=== PATIENT | female | born 1935 | race Caucasian/White ===

== ENCOUNTER → 2016-11-26 | Outpatient (CLI) | payer MEDICARE ==
[~2016-11-26] MED LIST: ATACAND16 MG PO; CEFTIN PO; ECOTRIN325 MG PO; LEVOTHROID (S100 MCG PO; LOPRESSOR25 MG PO; NITROSTAT0.4 MG SL; PEPCID40 MG PO; PRAVACHOL80 MG PO
== END | disposition disaster alternative care site (69) ==
LOC: GLAB 11-25 10:00 → GRAD 11:56 → GLAB 13:00
PROVIDERS: Otolaryngology
DX: R22.1 Localized swelling, mass and lump, neck (principal)
CPT/HCPCS: Q9967

== ENCOUNTER 2016-12-04 00:13 | Emergency (ER) | payer MEDICARE ==
--- NOTE | ~2016-12-04 | ER ---
PATIENT'S NAME: MARTIN ROSEN [facility] AGE: 81 Y [address] ROOM: [place], [place] [address] LOCATION: [facility] ADMIT DATE: 12/04/2016 ER/Outpatient Report DISCHARGE DATE: 12/04/2016 FAMILY PHYSICIAN: Syd Bettencourt MD ATTENDING PHYSICIAN: Erik Girard HISTORY OF PRESENT ILLNESS: The patient was at home when she got up to use the restroom and obtained a flashlight as the power had gone out. She states that she made it to a restroom, got confused about her physical location within the restroom and accidentally tripped over the toilet, falling and struck her face and arm. She denies loss of consciousness and states that she is otherwise doing okay. Her daughter was able to find her and forced her to come in tonight. She denies any headache, vision changes, difficulty walking, moving or having any other concerning symptoms at this time. PAST MEDICAL HISTORY: Documented on the record and reviewed by me. SOCIAL HISTORY: Documented on the record and reviewed by me. MEDICATIONS: Documented on the record and reviewed by me. ALLERGIES: DOCUMENTED ON THE RECORD AND REVIEWED BY ME. REVIEW OF SYSTEMS: All systems reviewed and negative except as noted in the HPI. PHYSICAL EXAMINATION: VITAL SIGNS: The patient was noted to be hypertensive 200s over one-teens. Pulse is 70, respiratory rate is 16, temperature 98.7, and SpO2 is 93% on room air. GCS 15. Pain is rated at 3/10. GENERAL: Age-appropriate female. No obvious pain or distress. Resting comfortably on exam table. NEURO: The patient is awake and alert. GCS is 15. No focal deficits. No asymmetry. No confusion. No dysarthria or slurring of speech. HEENT: Normocephalic, grossly atraumatic except for a 1.4 cm laceration vertically oriented through the right eyebrow region. Scant bleeding associated. Eyes are PERRL. Oropharynx is clear. NECK: Supple. Trachea is midline. Extraocular movements are intact. CHEST: Even unlabored respirations. LUNGS: Clear to auscultation bilaterally. PATIENT'S NAME: MARTIN ROSEN [facility] AGE: 81 Y [address] ROOM: [place], [place] [address] LOCATION: [facility] ADMIT DATE: 12/04/2016 ER/Outpatient Report DISCHARGE DATE: 12/04/2016 FAMILY PHYSICIAN: Syd Bettencourt MD ATTENDING PHYSICIAN: Erik Girard HEART: Regular rate and rhythm with no murmurs. BACK: Nontender to palpation throughout. ABDOMEN: Soft, nontender, and nondistended. No rebound or guarding. EXTREMITIES: Notable for a large skin tear over the dorsal right forearm. No other obvious abnormalities. No tenderness to palpation throughout. LABORATORY DATA AND X-RAYS: None. IMPRESSION: 1. Fall. 2. Eyebrow laceration. 3. Right forearm skin tear. EMERGENCY DEPARTMENT COURSE: The patient was seen and evaluated as above. Her wound was irrigated copiously on the eyebrow with normal saline and with a syringe. It was glued shut in a multilayer fashion. There were some bleeding issues with that. I do believe there was good approximation. The skin tear was cleaned by the RN. She tolerated those procedures well. I discussed the recommendation for head CT based on her age and aspirin use with fall with the concern for possible intracranial hemorrhage. She declined that in addition to any further workup including EKG and laboratory evaluation. At this time, I believe that the patient has the understanding to make that decision. It was discussed with her daughter and the patient will stay with her daughter rojelio. The patient will return if there is any worsening. Follow up with PCP as needed. MD DEV MAE/nirali /[id number] d: 12/04/16 0305 t: 12/16/16 0824, OUTPATIENT REPORT
[2017-05-14] MEDS ORDERED: PEPCID40 MG PO (12:04)
[2017-05-14] MEDS ORDERED: LOPRESSOR25 MG PO (12:04)
[2017-05-14] MEDS ORDERED: LEVOTHROID (S100 MCG PO (12:05)
[2017-05-14] MEDS ORDERED: ECOTRIN325 MG PO (12:05)
[2017-05-14] MEDS ORDERED: ATACAND16 MG PO (12:05)
[2017-05-14] MEDS ORDERED: NITROSTAT0.4 MG SL (12:06)
[2017-05-14] MEDS ORDERED: PRAVACHOL80 MG PO (12:06)
[2017-05-16] MEDS ORDERED: CEFTIN PO (12:13)
== END 2016-12-04 01:00 | disposition disaster alternative care site (69) ==
LOC: GACC 00:13
PROC: 0HQ1XZZ Repair Face Skin, External Approach (ICD-10-PCS; principal; 2016-12-04)
DX: Z23 Encounter for immunization (principal); S01.111A Laceration without foreign body of right eyelid and periocular area, initial encounter; S51.811A Laceration without foreign body of right forearm, initial encounter; Z79.82 Long term (current) use of aspirin; Z88.0 Allergy status to penicillin; Z88.2 Allergy status to sulfonamides; Z79.899 Other long term (current) drug therapy; W18.09XA Striking against other object with subsequent fall, initial encounter